=== PATIENT | male | born 1975 | race Caucasian/White ===

== ENCOUNTER → 2016-12-18 | Outpatient (CLI) | payer OTHER ==
--- NOTE | 2016-12-18 14:39 | XR ---
EXAMINATION TYPE: XR knee complete RT , 3 VIEWS DATE OF EXAM ORDERED: 12/18/2016 HISTORY: S83.91XA Sprain of unspecified site of right knee. COMPARISON: Previous study dated 09/03/2008. FINDINGS: There is evidence of an old fracture of the right tibial metaphysis medially. There is bertram dence of previous internal fixation. There is joint space loss and remodeling change in the medial co mpartment. There is peaking of intercondylar spines. There is mild remodeling change in the patellofe moral joint. No joint effusion is seen. IMPRESSION: 1. EVIDENCE OF OLD TRAUMA. 2. OSTEOARTHRITIS.
== END | disposition home or self-care (01) ==
LOC: RADXRMAIN 14:13
PROVIDERS: ATTEND Emergency Medicine
DX: M17.11 Unilateral primary osteoarthritis, right knee (principal)

== ENCOUNTER → 2016-12-26 | Outpatient (CLI) | payer OTHER ==
--- NOTE | 2016-12-26 16:02 | MR ---
EXAMINATION TYPE: MR knee RT wo con DATE OF EXAM: 12/26/2016 3:27 PM COMPARISON: NONE HISTORY: Right Knee, Hyperextended Knee on Uneven surface 1 week ago TECHNIQUE: Multiplanar, multiecho imaging of the right knee is performed without IV contrast. FINDINGS: There is a chronic fracture of the medial tibial plateau which previously transfixed with a medullary screw. This has been removed. There is diffuse degeneration of the body and posterior horn of the medial meniscus. There is an obli que tear communicating with the inferior articulating surface. There is a parameniscal cyst arising f rom the medial meniscus. This is somewhat loculated and measures 10.4 x 23.3 x 11.9 mm. The lateral meniscus is unremarkable. There is mucoid change in the anterior cruciate ligament. The posterior cruciate ligament is intact. Both the medial and the lateral collateral ligament complexes are intact. Iliotibial band inserts nor devaughn upon Gerdy's tubercle. The popliteus muscle and tendon are maintained. Both the quadriceps and patellar tendons are intact. There is no significant swelling in the Hoffa fa t space. There are remodeling changes within the medial and lateral compartments. There is also mild remodelin g in the patellofemoral joint. There is grade II to III chondromalacia involving the weightbearing surface of the lateral femoral co ndyle. No other significant chondromalacia is seen. IMPRESSION: CHRONIC FRACTURE OF THE MEDIAL TIBIAL PLATEAU. 2. CHRONIC DEGENERATION AND TEAR OF THE BODY AND POSTERIOR BODY HORN JUNCTION OF THE MEDIAL MENISCUS. 3. OSTEOARTHRITIS. 4. DISCOID DEGENERATION OF THE ANTERIOR CRUCIATE LIGAMENT. 5. PARALABRAL CYST ARISING FROM THE MEDIAL MENISCUS. 6. CHONDROMALACIA DESCRIBED.
== END | disposition home or self-care (01) ==
LOC: RADMRIMAIN 14:15
PROVIDERS: ATTEND Emergency Medicine
DX: S82.141A Displaced bicondylar fracture of right tibia, initial encounter for closed fracture (principal); S83.241A Other tear of medial meniscus, current injury, right knee, initial encounter; M17.11 Unilateral primary osteoarthritis, right knee; R93.7 Abnormal findings on diagnostic imaging of other parts of musculoskeletal system

== ENCOUNTER → 2017-02-27 | Outpatient (CLI) | payer OTHER ==
[2017-02-27 15:33] LABS: Basophils # (A) 0.1 k/uL (0-0.2); Basophils % (A) 1 %; CH 31.5; CHCM 33.9; Eosinophils # (A) 0.3 k/uL (0-0.7); Eosinophils % (A) 4 %; HCT 48.3 % (39.0-53.0); HDW 2.62; HGB 16.3 gm/dL (13.0-17.5); Luc # (Auto) 0.33; Luc % (Auto) 4; Lymphocytes # (A) 2.6 k/uL (1.0-4.8); Lymphocytes % (A) 28 %; MCH 31.5 pg (25.0-35.0); MCHC 33.7 g/dL (31.0-37.0); MCV 93.4 fL (80.0-100.0); Mean Platelet Volume 6.6; Monocytes # (A) 0.5 k/uL (0-1.0); Monocytes % (A) 6 %; Neutrophils # (A) 5.3 k/uL (1.3-7.7); Neutrophils % (A) 58 %; RBC 5.18 m/uL (4.30-5.90); RDW 13.1 % (11.5-15.5); WBC 9.1 k/uL (3.8-10.6); WBC (Perox) 9.56
[2017-02-27 15:44] LABS: Potassium 4.2 mmol/L (3.5-5.1)
== END | disposition home or self-care (01) ==
LOC: LABPAT 15:18
PROVIDERS: ATTEND Orthopaedic Surgery
DX: Z01.812 Encounter for preprocedural laboratory examination (principal); M23.91 Unspecified internal derangement of right knee
CPT/HCPCS: 80051; 85025

== ENCOUNTER 2017-03-15 06:48 | Day surgery (SDC) | payer BC ==
[2017-03-12 10:17] VITALS: BMI 38.2
--- NOTE | 2017-03-14 09:48 | HP ---
HISTORY AND PHYSICAL CHIEF COMPLAINT: Right knee pain. 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 He is having persistent medial pain with weightbearing activities and walking. He notes occasional locking. He has tried therapy, medications, and an injection with only partial temporary relief. He has been working with restrictions. PAST MEDICAL HISTORY: Significant for previous right knee tibial plateau fracture treated surgically along with previous shoulder surgery. CURRENT MEDICATIONS: Aleve and ibuprofen. FAMILY HISTORY: Negative. SOCIAL HISTORY: Significant for social alcohol use. He quit smoking in 2007. REVIEW OF SYSTEMS: Sixteen point review of systems otherwise reviewed and is noncontributory. PHYSICAL EXAMINATION: On examination, the patient is approximately 6 feet tall, 285 pounds of endomorphic habitus. HEENT exam is nonfocal. Neck is supple. He has painless passive motion of his right hip. Straight leg raise is negative. Active motion right knee -8 to 110 degrees of flexion. He is tender about the medial joint line. Collaterals are stable, Colleen's negative, Tyree's elicits medial pain. He has mild effusion. He has genu varum alignment. His distal neurovascular exam appears to be intact in the right lower extremity. MRI report for the right knee shows evidence of a posterior medial meniscal tear along with medial compartment degenerative changes and a previous medial tibial plateau fracture. IMPRESSION: 1. Right knee symptomatic medial meniscal tear. 2. Right knee medial compartment osteoarthrosis. 3. Increased body mass index. RECOMMENDATIONS: I talked to the patient at length regarding his treatment options. He is having persistent pain and mechanical symptoms despite adequate conservative measures. After a thorough discussion, he opts to proceed with surgery. We will plan to proceed with arthroscopic evaluation with probable partial medial meniscectomy. We will likely perform that as an outpatient procedure. Risks and benefits were discussed at length in layman's terms. MMODL / IJN: [id number] /
[~2017-03-15 06:48] MED LIST: DEXAMETHASONE SOD PHOSPHATE 10 MG/ML 1 ML VIAL IV ONE; LACTATED RINGERS 1,000 ML IV SCH; MIDAZOLAM 2 MG/2 ML VIAL IV PRN; ONDANSETRON 4 MG/2 ML VIAL IVP ONE; SCOPOLAMINE 1.5MG/72HR PATCH TRANSDERM ONE; ceFAZolin 3 GM in SODIUM CHLORIDE 0.9% 100 ML IVPB ONE
[2017-03-15] MEDS ORDERED: LIDOCAINE 1% 20 ML VIAL (10MG/ML) FOR IV START INTRADERMA ONE (07:35)
[2017-03-15] MEDS ORDERED: MIDAZOLAM 2 MG/2 ML VIAL ONE (08:02)
[2017-03-15] MEDS ORDERED: LIDOCAINE 1% INJ 10MG/ML (20 ML MDV) ONE (08:02)
[2017-03-15] MEDS ORDERED: PROPOFOL 10 MG/ML 20 ML VIAL IV ONE (08:02)
[2017-03-15] MEDS ORDERED: KETOROLAC 30 MG/ML 1 ML VIAL ONE (08:02)
[2017-03-15] MEDS ORDERED: fentaNYL (PF) 50 MCG/ML 2 ML AMP ONE (08:02)
--- NOTE | 2017-03-15 08:59 | P.OP ---
Date of Procedure: 03/15/17 Preoperative Diagnosis: Right knee internal derangement Postoperative Diagnosis: Right knee posterior medial meniscal tear/posterior lateral meniscal tear/grade 3 chondral injury central medial distal femoral condyle/reactive synovitis of the medial and patellofemoral compartments Procedure(s) Performed: Right knee arthroscopic partial medial meniscectomy/partial lateral meniscectomy /medial femoral chondrectomy/partial synovectomy of the medial and patellofemoral compartments Anesthesia: MYNORA Surgeon: Wilfredo Rosenberg Rn Angiography #1: Dann Bartlett Estimated Blood Loss (ml): 10 Pathology: none sent Condition: stable Disposition: PACU Indications for Procedure: The patient's a 41-year-old male who presents with progressive right knee pain and mechanical symptoms after a recent injury at work despite conservative treatment. A discussion of the risks and benefits of continued conservative measures versus operative intervention was made with patient. He opted to proceed with surgery. Operative risks to include infection, neurovascular injury, development of blood clots, possible incomplete resolution of symptoms, possible worsening symptoms and need for subsequent procedures was discussed. Informed consent was obtained. Operative Findings: As below Description of Procedure: The patient was brought to the operating room, and after induction of general anesthesia examined the right knee. Collaterals were stable, Colleen was negative, posterior drawer was negative. The right lower extremity was prepped and draped in normal fashion. A superior lateral portal was made through a 3 mm skin incision superior and lateral to the patella. This was used for outflow. A lateral portal was made through a 5 mm vertical skin incision lateral to the patella tendon above the joint line. Diagnostic arthroscopy was performed. A medial portal was made through a similar incision medial to the patella tendon above the joint line. On inspection medial compartment, a longitudinal tear involving the posterior horn of the medial meniscus in the white-white junction was noted. This debris back to stable base with straight baskets. A grade 3 chondral injury involving the central distal femoral condyle was noted. There was a loose chondral flap. Back to stable base with a motorized shaver. The previous medial tibial plateau fracture was evident. There was grade 3-4 chondral changes adjacent to that in the medial tibial plateau. Reactive synovitis involving the anterior medial compartment was debrided with a motorized shaver. On inspection of the notch, the anterior cruciate ligament appeared to be intact. On inspection of the lateral compartment, a macerated tear involving the middle to posterior one third of the lateral meniscus was noted in the white-white junction. This debrided back to stable base with a motorized shaver. The remaining lateral meniscus was stable and intact. Minimal degenerative changes in the lateral compartment were noted. On inspection patellofemoral articulation, there was reactive synovitis debrided with a motorized shaver. Grade 2/3 chondral changes were noted diffusely, however there was no loose chondral fragments. The gutters were clear debris. The knee was then thoroughly irrigated. The portals were closed with Steri-Strips. A sterile dressing was applied in addition to a compression stocking. The patient was awoken from general anesthesia and transferred to recovery room in good condition. Blood loss was estimated at 10 mL. No complications were incurred.
[2017-03-15] MEDS: HYDROmorphone 0.5 MG/0.5 ML SYRINGE IVP PRN ×2 (09:10→09:15)
[2017-03-15] MEDS ORDERED: LACTATED RINGERS 1,000 ML IV ONE (09:29)
[2017-03-15] MEDS ORDERED: HYDROcodone/APAP 7.5-325MG 1 EACH TAB PO ONE ×2 (09:55→10:14)
[2017-03-15 10:04] VITALS: PULSE 61
[2017-03-15 10:15] VITALS: BP 132/82; RESP 16
== END 2017-03-15 10:49 | disposition home or self-care (01) ==
LOC: OR 06:48
PROVIDERS: ATTEND Orthopaedic Surgery
DX: S83.241A Other tear of medial meniscus, current injury, right knee, initial encounter (principal); S83.281A Other tear of lateral meniscus, current injury, right knee, initial encounter; S83.31XA Tear of articular cartilage of right knee, current, initial encounter; M65.861 Other synovitis and tenosynovitis, right lower leg; X58.XXXA Exposure to other specified factors, initial encounter; F17.200 Nicotine dependence, unspecified, uncomplicated
CPT/HCPCS: 29880; J2250; J1100; J0690; J2405; J2001; J3010; J1885; J2704; J1170

== ENCOUNTER 2017-10-01 16:14 | Emergency (ER) | payer BC, OTHER ==
[2017-10-01 16:27] VITALS: BP 142/69; PULSE 101; RESP 18; TEMP 98.9
--- NOTE | 2017-10-01 17:19 | ED ---
General Adult HPI - General Chief complaint: Fall Stated complaint: Fell out of tree stand 12 ft/ankle injury Time Seen by Provider: 10/01/17 16:49 Source: patient, RN notes reviewed Mode of arrival: ambulatory Limitations: no limitations - History of Present Illness Initial comments: 42-year-old male presents to the emergency department for chief complaint of left ankle pain x 4 hours. Patient states that he was trying to take down his tree stand when he started to fall off the ladder. Patient states he jumped off about 12 feet high to avoid falling on his . Patient states he fell on his feet and then took a few steps backwards. Patient denies hitting his head. Patient denies any back, neck pain. Patient denies any head pain or loss of consciousness. Patient states the pain is mostly in his left ankle and denies pain in his left knee. Patient also scraped his right thigh on a tree stump. Patient denies any other complaints at this time. Patient denies any shortness of breath, chest pain, abdominal pain, nausea or vomiting, or visual changes. Patient denies any pain in the upper extremities. - Related Data Home Medications Medication Instructions Recorded Confirmed Ibuprofen [Motrin Ib] 600 mg PO TID PRN 10/01/17 10/01/17 Allergies Allergy/AdvReac Type Severity Reaction Status Date / Time Mushroom Allergy Swelling Verified 10/01/17 16:48 Review of Systems ROS Statement: Those systems with pertinent positive or pertinent negative responses have been documented in the HPI. ROS Other: All systems not noted in ROS Statement are negative. Past Medical History Past Medical History: Chest Pain / Angina, Hypertension, Syncope Additional Past Medical History / Comment(s): Rhabdomylosis, bronchitis, stress test 06-30-14 WNL, syncopal episode/fell/ rt frontal head wound. History of Any Multi-Drug Resistant Organisms: None Reported Past Surgical History: Orthopedic Surgery Additional Past Surgical History / Comment(s): RT open reduction tibial plateau , left shoudler surgery surgery for undescended testical, oral surgeries-has implanted tooth Past Anesthesia/Blood Transfusion Reactions: No Reported Reaction, Postoperative Nausea & Vomiting (PONV) Additional Past Anesthesia/Blood Transfusion Reaction / Comment(s): Pt has never recieved blood. "TAKES LONGER WAKING UP" Past Psychological History: No Psychological Hx Reported Smoking Status: Current every day smoker Past Alcohol Use History: Occasional Past Drug Use History: None Reported - Past Family History Father Family Medical History: Cancer, Hypertension Additional Family Medical History / Comment(s): COLON CANCER Mother Family Medical History: Coronary Artery Disease (CAD), Hypertension General Exam Limitations: no limitations General appearance: alert, in no apparent distress (Patient is laying in the exam bed and easily communicating with me.) Head exam: Present: atraumatic, normocephalic, normal inspection Eye exam: Present: normal appearance, PERRL, EOMI. Absent: scleral icterus, conjunctival injection, periorbital swelling Respiratory exam: Present: normal lung sounds bilaterally. Absent: respiratory distress, wheezes, rales, rhonchi, stridor Cardiovascular Exam: Present: regular rate, normal rhythm, normal heart sounds. Absent: systolic murmur, diastolic murmur, rubs, gallop, clicks Extremities exam: Present: tenderness (Tenderness to the left malleolus on the left ankle. No tenderness to the heel. Patient does have some tenderness in the foot dorsally as well. No tenderness of the tib-fib or knee joint. No tenderness of the right ankle), normal capillary refill (Refill less than 2 seconds in the left ankle and pedal pulse 2+ in lower extremities bilaterally.) , joint swelling (Lateral swelling noted of the left ankle.), calf tenderness ( No calf tenderness, redness, swelling, or warmth.), other (Patient has intact sensation to light touch in the left lower extremity.). Absent: full ROM ( Patient is not able to flex or extend his left ankle) Back exam: Present: normal inspection, full ROM (Full range of motion including flexion and extension of the lumbar spine. Patient is able to twist and bend laterally.). Absent: tenderness (No tenderness along the spine from the neck to the lumbar spine.) Neurological exam: Present: alert, oriented X3, CN II-XII intact, other (GCS 15) Course Vital Signs 10/01/17 16:21 Temperature 98.9 F Pulse Rate 101 H Respiratory 18 Rate Blood Pressure 142/69 O2 Sat by Pulse 99 Oximetry Medical Decision Making - Medical Decision Making 42-year-old male presents to the emergency department for chief complaint of left ankle pain after falling 12 feet from a ladder. Patient landed on his feet , mostly his left ankle. Patient denies hitting his head or back or losing consciousness. Patient scratched his right thigh on a tree stump but it is a small superficial abrasion. On exam patient does have some swelling to the left ankle. He is unable to flex or extend his left ankle. Neurovascular intact as well as sensation. Patient is able to fully flex and extend his back as well as twist. No tenderness along the spine. However lumbar x-ray was ordered to rule out burst fractures. X-ray of the ankle shows a nondisplaced avulsion fracture of the lateral malleolus. No additional fractures seen. There is a mistake on the report that has no evidence for acute fracture in the impression. X-ray was contacted to fix this issue. There is also a possible fracture of the base of the fifth proximal phalanx. This was correlated with point tenderness. Patient is very tender over the area and this is likely a fracture. There is no calcaneus fracture. Patient was splinted in a posterior short-leg. He is to remain nonweightbearing and states they have crutches in the car that they use to get him here. He is to follow-up with orthopedics in one to 2 days. He will return to the emergency department if he has any worsening symptoms. He can take Tylenol for pain relief. Disposition Clinical Impression: Ankle fracture, Foot fracture Disposition: HOME SELF-CARE Condition: Good Instructions: Ankle Fracture (ED), Foot Fracture in Adults (ED) Additional Instructions: Please take Tylenol for pain relief. Please rest, ice, and elevate the affected ankle. Use crutches and remain nonweightbearing until you see orthopedics. Please follow-up with orthopedics in one to 2 days. Please return to the emergency department if you have any worsening symptoms. Is patient prescribed a controlled substance at d/c from ED?: No Referrals: None,Stated [Primary Care Provider] - 1-2 days Time of Disposition: 18:50
--- NOTE | 2017-10-01 17:27 | XR ---
EXAMINATION TYPE: XR foot complete LT, XR calcaneus 2V LT, XR ankle complete LT DATE OF EXAM: 10/01/2017 CLINICAL HISTORY: pain TECHNIQUE: Frontal, lateral and oblique images of the left foot are obtained. COMPARISON: None. FINDINGS: It is difficult to exclude a fracture at the base of the fifth proximal phalanx. Adjacent s oft tissue swelling noted. Correlate clinically with point tenderness. Left os calcis is intact. No fracture seen. Small dorsal calcaneal spur identified. IMPRESSION: Fracture is difficult to exclude. EXAMINATION TYPE: XR foot complete LT, XR calcaneus 2V LT, XR ankle complete LT DATE OF EXAM: 10/01/2017 COMPARISON: NONE HISTORY: Pain TECHNIQUE: 3 views of the left ankle are submitted for evaluation. 2 views of the left os calcis are also submitted. FINDINGS: Nondisplaced avulsion fracture lateral malleolar tip. Adjacent soft tissue swelling. No add itional fractures seen. Ankle mortise is intact. IMPRESSION: 1. No evidence for acute fracture.
--- NOTE | 2017-10-01 18:46 | XR ---
EXAMINATION TYPE: XR lumbar spine 2 or 3V DATE OF EXAM: 10/01/2017 CLINICAL HISTORY: pain TECHNIQUE: Three views of the lumbar spine are submitted. COMPARISON: None. FINDINGS: There are 5 lumbar type vertebral bodies identified. The lumbar spine shows satisfactory alignment w ithout evidence of acute fracture or dislocation. Vertebral body heights are within normal limits. Scattered degenerative disc space narrowing and spondylosis. Severe facet joint arthropathy L4-5 with grade 1 anterolisthesis of 7.5 mm. The overlying soft tissue appears unremarkable. IMPRESSION: No acute fracture or dislocation is seen in the lumbar spine. ICD 10 NO FRACTURE, INITIAL EVALUATION
== END 2017-10-01 19:14 | disposition home or self-care (01) ==
LOC: EC 16:14
DX: S82.65XA Nondisplaced fracture of lateral malleolus of left fibula, initial encounter for closed fracture (principal); S92.902A Unspecified fracture of left foot, initial encounter for closed fracture; S70.311A Abrasion, right thigh, initial encounter; R40.2412 Glasgow coma scale score 13-15, at arrival to emergency department; F17.200 Nicotine dependence, unspecified, uncomplicated; Z91.018 Allergy to other foods; W11.XXXA Fall on and from ladder, initial encounter
CPT/HCPCS: 29515; 72100; 99283